=== PATIENT | male | born 1990 | race Two or more races ===

== ENCOUNTER → 2020-04-17 | Emergency (ER) | payer OTHER ==
[~2020-04-17] VITALS: Ht 160 cm; Wt 61.2 kg
== END | disposition home or self-care (01) ==
LOC: ER 12:17
DX: S90.31XA Contusion of right foot, initial encounter (principal); W22.8XXA Striking against or struck by other objects, initial encounter; Y93.89 Activity, other specified; Y92.89 Other specified places as the place of occurrence of the external cause; Y99.8 Other external cause status